=== PATIENT | female | born 1970 | race Caucasian/White ===

== ENCOUNTER → 2019-12-08 | Outpatient (CLI) | payer OTHER ==
[2016-03-28 09:40] VITALS: BP 127/74
[~2019-12-08] MED LIST: GADOTERATE 7.5 MMOL/15ML VIAL. IVP ONE; HYDR-2761 PO; HYDR-3164 PO; NITR100C PO; PHEN-318 PO
--- NOTE | 2019-12-08 15:10 | RAD ---
STUDY: MRI right lower extremity with and without contrast INDICATION: Right knee pain. Sclerotic focus within the proximal tibial shaft in the setting of prior bone harvesting at this site. COMPARISON: None available. TECHNIQUE: Multiplanar MRI of the right lower extremity with the [id number] is centered on the proximal tibia and including the knee. Imaging was performed both prior to and after the intravenous administration of 13 cc Dotarem. FINDINGS: Bones: Confluent hypointense focus within the proximal tibial shaft centered within the intramedullary cavity. Hypointense signal tracks towards the ventral cortex, image 19 series 5, with susceptibility artifact of the overlying subcutaneous tissues confirming prior surgery at this location. Thin periphery of increased signal on the fat saturated sequences favored secondary to incomplete fat suppression from magnetic field inhomogeneity. No pathologic enhancement to suggest an aggressive abnormality. No adjacent fracture. The rest of the osseous structures included in the [id number] are unremarkable. Knee joint: Intact cruciate and collateral ligaments. No meniscal tear is identified. The patellar tendon is intact as are the additional tendons included in the [id number]. Small Aleman's cyst with fluid preferentially distributed along the medial margin of the semimembranosus tendon. No full-thickness chondral defect seen at the medial or lateral femorotibial compartments. There is likely chondrosis at the medial patellar facet, image 5 series 8. No large knee joint effusion. Miscellaneous: What is seen of the calf musculature is normal in bulk and signal. IMPRESSION: 1. Homogeneously hypointense focus centered within the medullary cavity of the proximal tibial shaft with overlying surgical changes. 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 2. No acute internal derangement seen at the knee. Suspected chondrosis at the medial patellar facet. Small Aleman's cyst. Electronically signed by: SANTOS NAIDU MD (12/08/2019 3:08 PM) [id number]
== END | disposition home or self-care (01) ==
LOC: MRI 09:05
PROVIDERS: ATTEND Family Medicine
DX: M71.21 Synovial cyst of popliteal space [Baker], right knee (principal); R22.41 Localized swelling, mass and lump, right lower limb; M25.861 Other specified joint disorders, right knee
CPT/HCPCS: 73723; A9575

== ENCOUNTER → 2020-02-25 | Outpatient (CLI) | payer OTHER ==
[2016-03-28 09:40] VITALS: BP 127/74
[~2020-02-25] MED LIST changes: -GADOTERATE 7.5 MMOL/15ML VIAL. IVP ONE
--- NOTE | 2020-02-25 13:03 | RAD ---
HIP RIGHT 2 VIEW DATE: 02/25/2020 12:00 AM INDICATION: RIGHT HIP PAIN. COMPARISON: None. FINDINGS: Bones: There is no evidence of acute fracture or dislocation. Joints: The joint spaces are normal. Miscellaneous: None. IMPRESSION: No evidence of acute fracture. Electronically signed by: Mckinley Redd MD (02/25/2020 1:00 PM) [id number]
== END ==
LOC: RAD 10:42
PROVIDERS: ATTEND Family Medicine
DX: M25.551 Pain in right hip (principal)
CPT/HCPCS: 73502